=== PATIENT | female | born 1960 | race Hispanic/Latino ===

== ENCOUNTER 2024-09-19 19:28 | Emergency (ER) | payer OTHER ==
[~2024-09-19] VITALS: Ht 154.9 cm; Wt 97.0 kg
[2024-09-19] MEDS ORDERED: LEVOTHYROXINE50 MCG PO (19:47)
[2024-09-19] MEDS ORDERED: LOVASTATIN20 MG PO (19:47)
[2024-09-19] MEDS ORDERED: METFORMIN HCL500 M1 PO (19:47)
[2024-09-19] MEDS ORDERED: LISINOPRIL10 MG PO (19:47)
[2024-09-19] MEDS ORDERED: VALTREX1000 MG PO (20:56)
[2024-09-19] MEDS ORDERED: VALACYCLOVIR HCL 500 MG TAB PO ONE (21:00)
[2024-09-19 21:03] VITALS: BP 111/79
== END 2024-09-19 21:05 | disposition home or self-care (01) ==
LOC: ED 19:28
DX: B02.9 Zoster without complications (principal); Z79.84 Long term (current) use of oral hypoglycemic drugs; Z79.899 Other long term (current) drug therapy; Z88.1 Allergy status to other antibiotic agents
CPT/HCPCS: 99282